=== PATIENT | female | born 1975 | race Caucasian/White ===

== ENCOUNTER 2020-09-17 00:40 | Observation (INO) | payer BC, SELFPAY ==
[2020-09-17] VITALS (9 sets, daily range): BP systolic 92–110; BP diastolic 48–77; PULSE 64–97; RESP 16–20; TEMP 36.1–36.7; O2SAT 98–100; BMI 22.0
--- NOTE | ~2020-09-17 | CT_ITS ---
EXAMINATION: CT abdomen pelvis w con DATE: 09/17/2020 02:33 INDICATION: Abdominal pain TECHNIQUE: Computed tomography (CT) of the abdomen and pelvis was performed with 100 cc Omnipaque 350 intravenous contrast. The dose-length product was 318.85 mGy-cm. Automated exposure control and iter ative reconstruction technique were employed. COMPARISON: No prior studies for comparison. FINDINGS: Lung bases are unremarkable. Heart size normal. No significant pleural or pericardial effus ion. No significant vascular abnormality. No lymphadenopathy. Hepatomegaly. The spleen, pancreas, adrenal glands and kidneys are unremarkable. Gallbladder is prese nt. Nonobstructive bowel gas pattern. There is a 11 mm tubular structure posterior to the cecum which could represent a dilated appendix or nonopacified small bowel. There are multiple dilated pelvic ve ins, consistent with pelvic congestion syndrome. No free air or free fluid. No acute osseous abnormal ity. There is a small fat-containing umbilical hernia. IMPRESSION: 1. Possible mildly dilated appendix versus unopacified small bowel. Consider appendicitis in the appr opriate clinical setting. 2: Multiple dilated periuterine veins, which can be associated with pelvic congestion syndrome. 3: Hepatomegaly. [facility] radiologist verbally discussed this case with clinician as per documentation in their report, which was faxed and scanned into PACS with this exam. Reviewed, dictated and finalized at location A. IMPRESSION: 1. Possible mildly dilated appendix versus unopacified small bowel. Consider ap pendicitis in the appropriate clinical setting. 2: Multiple dilated periuterine veins, which can be associated with pelvic leslee estion syndrome. 3: Hepatomegaly. [facility] radiologist verbally discussed this case with clinician as per document ation in their report, which was faxed and scanned into PACS with this exam.
--- NOTE | ~2020-09-17 | CT_ITS ---
EXAMINATION: CT pelvis wo con DATE: 09/17/2020 14:56 INDICATION: Abdominal pain. Delayed imaging obtained post oral contrast administration to more specif ically assess for suspected acute appendicitis on prior CT. TECHNIQUE: Computed tomography (CT) of the pelvis was performed without intravenous contrast but foll owing administration of water-soluble oral contrast. Automated exposure control and iterative reconst ruction technique were employed. The dose-length product was 306.17 mGy-cm. COMPARISON: 09/17/2020 at 2:27 AM FINDINGS: Oral contrast opacifies the mid to distal small bowel to the ileocecal valve and into the colon. Ther e is no oral contrast within the appendix which is seen arising from the tip of the cecum which exten ds posterior to the cecum towards the region of the entrance of the right inguinal canal. The appendi x measures up to 1.4 cm in maximal diameter with surrounding inflammatory stranding consistent with a cute appendicitis. Remainder of the bowels are unremarkable with no wall thickening or obstruction. B ladder is normal. Again seen are prominent parametrial veins and either side of the normal anteverted uterus which as previously noted is suggestive of pelvic vascular congestion syndrome. Small amount of likely reactive ascites in the cul-de-sac. No abscess or free intraperitoneal gas in the visualize d pelvis. Tiny fat-containing umbilical hernia. Bones are unremarkable. IMPRESSION: 1. Acute appendicitis. Dr. Aceves discussed these findings with Dr. Desai at 4:05 PM. Reviewed, dictated and finalized at location A. IMPRESSION: 1. Acute appendicitis. Dr. Aceves discussed these findings with Dr. Lloyd mejia t 4:05 PM.
[2020-09-17] MEDS: SODIUM CHLORIDE 0.9% IV 1,000 ML 999 ML IV CONT ×2 (01:42→05:39)
[2020-09-17] MEDS: MORPHINE SULFATE (*CRX) 4 MG/ML INJ IV PUSH ×2 (01:43→04:31)
[2020-09-17] MEDS: ONDANSETRON INJ 4 MG/2 ML VIAL IV PUSH (01:43)
[2020-09-17 01:54] LABS: Basophils Percent Auto 0.3 % (0.2-1.2); Eosinophils Absolute Auto 0.1 K/mm3 (0-0.3); Eosinophils Percent Auto 0.5 % (0-4.4); Hematocrit 42.9 % (37.0-47.0); Hemoglobin 14.5 g/dL (12.0-15.0); Immature Granulocyte Absolute 0.05 K/mm3 (0.00-0.031); Immature Granulocyte Percent A 0.4 % (0-0.5); Lymphocytes Absolute Auto 1.78 K/mm3 (0.9-3.2); Mean Corpuscular HGB Conc 33.8 g/dl (32-36); Mean Corpuscular Hemoglobin 31.4 pg (26-34); Mean Corpuscular Volume 92.9 fl (80-100); Mean Platelet Volume 10.4 fl (7.4-10.4); Monocytes Absolute Auto 0.9 K/mm3 (0.1-0.6); Monocytes Percent Auto 7.3 % (2.6-8.5); Neutrophils Absolute Auto 9.1 K/mm3 (1.3-6.7); Neutrophils Percent Auto 76.5 % (45.5-73.1); Platelet Count Result 228 k/mm3 (150-375); Red Blood Count 4.62 M/mm3 (4.2-5.4); Red Cell Distribution Width 12.1 % (11.5-14.5); White Blood Count 11.9 K/mm3 (4.5-10.0)
[2020-09-17 01:57] LABS: Add Urine Microscopic? YES; Appearance Urine Clear (Clear); Bilirubin Urine Negative (Negative); Blood Urine 1+ (Negative); Color Urine Yellow (Yellow); Glucose Urine UA Negative (Negative); Ketones Urine 1+ mg/dL (Negative); Leukocyte Esterase Ur Negative LEU/UL (Negative); Mucus Urine Rare /lpf; Nitrate Urine Negative (Negative); Protein Urine 1+ mg/dL (Negative); RBC Urine 0-2 /hpf (0-2); Specific Grav Ur 1.016 (1.001-1.035); Squamous Epithelial Cell Urine Rare /hpf (Few); Urobilinogen Urine Negative mg/dL (<2.0); WBC Urine 0-3 /hpf
[2020-09-17 02:05] LABS: Lactic Acid Reflex 0.9 mmol/L (0.7-2.1)
[2020-09-17 02:06] LABS: Alanine Aminotransferase 13 U/L (4-35); Albumin Level 4.3 g/dL (3.5-5.1); Alkaline Phosphatase 60 U/L (38-126); Anion Gap 7 mmol/L (8-16); Aspartate Amino Transferase 26 U/L (14-36); Bilirubin,Total 0.8 mg/dL (0.2-1.3); Blood Urea Nitrogen 17 mg/dL (7-17); Calcium 8.6 mg/dL (8.4-10.2); Carbon Dioxide 25 mmol/L (22-30); Chloride 104 mmol/L (98-107); Estimated CRCL calculation 66 ml/min; Estimated Glomerular Filt Rate > 60; Glucose 110 mg/dL (65-105); Lipase 55 U/L (23-300); Potassium 4.1 mmol/L (3.4-5.0); Sodium 136 mmol/L (137-145)
--- NOTE | 2020-09-17 02:56 | ED.GENADULT ---
HPI - General Adult General Chief complaint: Abdominal Pain Stated complaint: Abd pain Time Seen by Provider: 09/17/20 00:48 History of Present Illness HPI narrative: Patient is a 45-year-old female who presents to emergency department with chief complaint of abdominal pain. Patient reports that she started having pain diffusely throughout her abdomen reports that she did have a bit of diarrhea that is now subsequently switched to constipation. Patient reports she had some nausea with it but no vomiting. Related Data Home Medications Medication Instructions Recorded Confirmed No Home Medications 06/03/20 Allergies Allergy/AdvReac Type Severity Reaction Status Date / Time No Known Allergies Allergy Unverified 05/11/15 15:26 Review of Systems Review of Systems: Narrative: A 10 system review of systems was completed on the patient and is negative except for what is stated in the HPI. Nursing and ancillary documentation was reviewed. [facility] Past Medical History Medical History B12 deficiency Dizziness Heartburn Migraine with aura, not intractable, without status migrainosus Osteoarthritis Radiculopathy, cervical region Vitamin D insufficiency Family History Family History Mother Family history of heart disease in male family member before age 55 Hypertension Father Family history of gout Hypertension Social History Social History Smoking status: Never smoker Alcohol intake: never Exam Narrative: Exam Narrative: GENERAL: Well-appearing, well-nourished, and in no acute distress. HEAD: Normocephalic, atraumatic. EYES: PERRLA and EOMI. ENT: Nares clear, no rhinorrhea or epistaxis. Mucous membranes moist. NECK: Supple. CHEST: Clear to auscultation. No respiratory distress. HEART: Regular rate and rhythm. No murmur heard. Normal peripheral pulses. ABDOMEN: Soft, tender to palpation in the right lower quarant, nondistended, normal active bowel sounds. EXTREMITIES: Normal range of motion. No edema. SKIN: Warm, dry, no rash. NEURO: No focal deficits. Alert and oriented x3. PSYCH: Normal mood and affect. Const: General: healthy appearing Course Course Emergency Course: CT scan shows a 11 mm tubular structure posterior to the cecum concerning for possible acute appendicitis. The patient is moderately tender in the right lower quadrant the case was discussed with Dr. Desai who is on-call for general surgery. The patient will be admitted for observation and serial exams Vital Signs Vital signs: Vital Signs Temperature 36.3 C L 09/17/20 00:41 Pulse Rate 97 09/17/20 00:41 Respiratory Rate 18 09/17/20 00:41 Blood Pressure 101/60 09/17/20 00:41 Pulse Oximetry 98 09/17/20 00:41 Temperature 36.3 C L 09/17/20 00:41 Pulse Rate 68 09/17/20 02:47 Respiratory Rate 20 09/17/20 02:47 Blood Pressure 98/62 L 09/17/20 02:47 Pulse Oximetry 98 09/17/20 02:47 Medical Decision Making Vital Signs Vital Signs: Vital Signs Temperature 36.3 C L 09/17/20 00:41 Pulse Rate 97 09/17/20 00:41 Respiratory Rate 18 09/17/20 00:41 Blood Pressure 101/60 09/17/20 00:41 Pulse Oximetry 98 09/17/20 00:41 Temperature 36.3 C L 09/17/20 00:41 Pulse Rate 68 09/17/20 02:47 Respiratory Rate 20 09/17/20 02:47 Blood Pressure 98/62 L 09/17/20 02:47 Pulse Oximetry 98 09/17/20 02:47 Lab Data Result diagrams: 09/17/20 01:41 09/17/20 01:41 Labs: Lab Results 09/17/20 09/17/20 09/17/20 Range/Units 01:41 01:41 01:41 WBC 11.9 H (4.5-10.0) K/mm3 RBC 4.62 (4.2-5.4) M/mm3 Hgb 14.5 (12.0-15.0) g/dL Hct 42.9 (37.0-47.0) % MCV 92.9 (80-100) fl MCH 31.4 (26-34) pg MCHC 33.8 (32-36) g/dl RDW 12.1 (11.5-14.5)
--- NOTE | 2020-09-17 03:36 | PC.NURSE ---
EDMD presented to bedside to update pt on poc. remains at bedside. Call button and personal items within reach. Advised to press call button for assistance.
--- NOTE | 2020-09-17 04:23 | PC.NURSE ---
Pt resting on cart in its lowest position. Vitals stable and pt in no obvious distress at this time. remains at bedside. Advised to press call button for assistance.
[2020-09-17] MEDS: SODIUM CHLORIDE 0.9% IV 1,000 ML 125 ML IV CONT ×3 (04:30→21:06)
--- NOTE | 2020-09-17 04:49 | PC.NURSE ---
Pt ambulated in [place] to restroom with standby assistance from with a steady gait noted. Pt now back in bed and resting on cart in its lowest position with call button and personal items within reach. Advised to press call button for assistance.
--- NOTE | 2020-09-17 05:23 | PC.NURSE ---
Pt resting on cart in its lowest position with call button and personal items within reach. Pt advised to press call button for assistance. remains at bedside.
--- NOTE | 2020-09-17 05:34 | PC.NURSE ---
Pt noted with multiple episodes of hypotension. Pt also noted to become bradycardic; all onset post adinistration of 4 mg Morphine. EDMD notified and gave verbal order for 1liter bolus of 0.9 normal saline.
--- NOTE | 2020-09-17 05:41 | PC.NURSE ---
Report called to receiving nurse, Kaveh. Ok to send pt to floor.
--- NOTE | 2020-09-17 05:48 | PC.NURSE ---
3rd Med called and states room for pt has not been cleaned and asks to postpone pt transport until its completed.
--- NOTE | 2020-09-17 06:35 | ADMGEN ---
This patient, Esha Shetty, was admitted to Medical Room 345-01. Patient/family oriented to hospital policies and general routines including ID bracelet, bed and alarms, visiting hours, pain management, procedures, bathroom and other care routines, personal items, smoking policy, room service/diet, and visiting hours. Information on how to activate the Rapid Response Team has been discussed. Patient/Family are encouraged to report perceived risks to care and to ask questions if they do not understand what they are told or what they should do.
[2020-09-17 09:42] LABS: Basophils Percent Auto 0.3 % (0.2-1.2); Eosinophils Absolute Auto 0.1 K/mm3 (0-0.3); Eosinophils Percent Auto 0.8 % (0-4.4); Hematocrit 37.1 % (37.0-47.0); Hemoglobin 12.3 g/dL (12.0-15.0); Immature Granulocyte Absolute 0.02 K/mm3 (0.00-0.031); Immature Granulocyte Percent A 0.3 % (0-0.5); Lymphocytes Absolute Auto 1.72 K/mm3 (0.9-3.2); Lymphocytes Percent Auto 24.1 % (18.3-44.2); Mean Corpuscular HGB Conc 33.2 g/dl (32-36); Mean Corpuscular Hemoglobin 31.1 pg (26-34); Mean Corpuscular Volume 93.9 fl (80-100); Mean Platelet Volume 9.8 fl (7.4-10.4); Monocytes Absolute Auto 0.6 K/mm3 (0.1-0.6); Monocytes Percent Auto 7.8 % (2.6-8.5); Neutrophils Absolute Auto 4.8 K/mm3 (1.3-6.7); Neutrophils Percent Auto 66.7 % (45.5-73.1); Platelet Count Result 156 k/mm3 (150-375); Red Blood Count 3.95 M/mm3 (4.2-5.4); Red Cell Distribution Width 12.1 % (11.5-14.5); White Blood Count 7.2 K/mm3 (4.5-10.0)
--- NOTE | 2020-09-17 09:46 | PM.IMHP ---
H&P: HPI History of Present Illness Date/Time: 09/17/20 09:46 Chief Complaint: Abdominal pain Narrative: This is a 45-year-old female who presented to the emergency room last night with complaints of right lower quadrant abdominal pain. The patient reports having a longstanding history of intolerance to certain foods that cause significant indigestion. She reports apples being one of the foods that she is intolerant to and tries to avoid. She reportedly ate a bowl of applesauce 2 days ago and shortly after this had an onset of dyspepsia and generalized cramping, burning abdominal pain. The onset was at 5:00 p.m. 2 days ago. The generalized abdominal pain continued, until yesterday when she started having more localized right lower quadrant abdominal pain. Pain seemed aggravated by movement. She also felt her pain was aggravated by food. Denies fever chills. No history of having right lower quadrant abdominal pain in the past. Due to the continued pain, she presented to the ER for further evaluation. CT scan of abdomen and pelvis showed possibly mildly dilated appendix versus unopacified small bowel, without significant inflammatory stranding. Also noted is multiple dilated anitha uterine veins and hepatomegaly. Labs revealed a mildly elevated white blood cell count of 11,900. The ER physician and the patient has been admitted for surgical evaluation of the right lower quadrant abdominal pain with possible acute appendicitis. The patient is now seen on the medical floor. She reports her pain is unchanged since being admitted. She reports there is minimal abdominal pain when resting in the same position. This is aggravated when she moves or gets up from the bed. No other complaints at this time. No history of previous abdominal surgery. Review of Systems Constitutional: Constitutional: Reports as per HPI, Denies chills, Denies fatigue and Denies fever(s) Eyes: Eyes: Reports no additional eye complaints and Denies change in vision ENT: Reports Normal hearing present and Denies headache(s) Cardiovascular: Cardiovascular: Reports no additional cardiovascular complaints, Denies chest pain, Denies leg edema and Denies radiating jaw, neck or arm pain Respiratory: Respiratory: Reports no additional respiratory complaints, Denies cough, Denies dyspnea and Denies wheezing Gastrointestinal: Gastrointestinal: Reports as per HPI, Reports no additional gastrointestinal complaints, Reports abdominal pain, Denies melena, Reports bloating, Denies hematochezia, Reports constipation, Reports dyspepsia, Denies diarrhea, Denies loose stools, Reports nausea and Denies vomiting Genitourinary: Genitourinary: Denies hematuria and Denies dysuria Musculoskeletal: Musculoskeletal: Reports no additional musculoskeletal complaints, Denies joint swelling, Denies radiating pain into limb and Denies tingling Integumentary/Breasts: Skin/Breast: Denies lesions, Denies wounds and Denies jaundice Neurologic: Reports system reviewed and no additional complaints, except as documented, Denies dizziness, Denies syncope, Denies tingling and Denies tremor(s) Psychiatric: Psychiatric: Denies anxiety and Denies depression [facility] Past Medical History Medical History B12 deficiency Dizziness Heartburn Migraine with aura, not intractable, without status migrainosus Osteoarthritis Radiculopathy, cervical region Vitamin D insufficiency Surgical History Surgical History No history of previous surgery Family History Family History Mother Family history of heart disease in male family member before age 55 Hypertension Father Family history of gout Hypertension Social History Social History Smoking status: Never smoker Alcohol intake: never
--- NOTE | 2020-09-17 16:39 | PM.PNGS ---
Progress Note: A&P Assessment and Plan (1) Acute appendicitis, uncomplicated: Onset Date: ~09/15/20 Code(s): K35.80 - Unspecified acute appendicitis Status: Acute Assessment and Plan: The risks, benefits, and possible complications of treatment with continued antibiotic therapy versus surgical intervention have been discussed thoroughly with the patient. After thorough discussion she wishes to think about her decision overnight. I have tentatively scheduled surgery for her for 1:30 p.m. tomorrow if she wishes to proceed with surgical intervention. Will continue IV antibiotics overnight and see how she is feeling in the morning and she will make a decision early to mid morning after she talks with me. (2) Umbilical hernia: Onset Date: Unknown Code(s): K42.9 - Umbilical hernia without obstruction or gangrene Status: Acute Assessment and Plan: Patient did not know this bulge was a small umbilical hernia. She now knows this. If we do decide for surgical intervention I will make 1 of the incisions at the inferior edge of this and try to use it as 1 of the ports and then repair it with a stitch at the end of the procedure. If she decides to go with antibiotic treatment we can follow this expectantly and the office at a later date. Additional Plan Will allow the patient to have clear liquids from now on till midnight. NPO at midnight Left further discussions the morning regarding continued treatment of the suspected acute uncomplicated appendicitis. Continue IV antibiotics. Subjective Subjective Date/Time Seen: 09/17/20 16:39 I went back to visit patient after reviewing her follow-up noncontrast pelvic CT scan. I reviewed the CT scan with from her to will be reading it. This was with oral contrast. This proves that the structure thought to possibly be a swollen appendix is indeed that and is not a loop small bowel. Therefore with also some stranding seen near the appendix it is more diagnostic for probable early appendicitis. Patient now taking the next 12-14 hours decide about whether she wants to pursue continued antibiotic therapy or go ahead with surgical intervention. We discussed the various risks and benefits of this and possible need for surgery in 30% of the time if she chooses to continue with antibiotic therapy alone for the appendicitis. She states right now she is feeling okay she still has occasional short episodes of pain in her lower abdomen. Her pain is about 3/10 in the right lower quadrant. Objective Data Vital Signs Vital Signs: Vital Signs - 24 hr 09/17/20 00:41 09/17/20 01:54 09/17/20 02:47 Temperature 36.3 C L Pulse Rate 97 70 68 Respiratory Rate 18 18 20 Blood Pressure 101/60 105/73 98/62 L Pulse Oximetry 98 98 98 09/17/20 04:23 09/17/20 05:20 09/17/20 05:42 Temperature 36.7 C Pulse Rate 70 64 70 Respiratory Rate 20 19 20 Blood Pressure 110/77 92/51 L Pulse Oximetry 100 100 99 09/17/20 06:41 09/17/20 14:00 Temperature 36.1 C L 36.4 C Pulse Rate 68 65 Respiratory Rate 16 16 Blood Pressure 100/48 L 96/50 L Pulse Oximetry 100 100 Intake/Output Intake/Output: Intake & Output 09/14/20 09/15/20 09/16/20 09/17/20 23:59 23:59 23:59 23:59 Intake Total 3150 Balance 3150 Meds/Results Medications: Active Medications Generic Name Dose Route Start Last Admin Trade Name Freq PRN Reason Stop Dose Admin Sodium Chloride 1,000 mls @ 125 mls/hr 09/17/20 04:10 09/17/20 14:30 Normal Saline Iv IV CONT 125 mls/hr .Q8H MARGUERITE Administration Piperacillin/Tazobactam/Dextrose 3.375 gm in 50 mls @ 100 mls/hr 09/17/20 10:00 09/17/20 16:32 Zosyn 3.375 Gm/D5w 50ml Pm IVPB 100 mls/hr Q6H MARGUREITE Administration Acetaminophen 1,000 mg in 100 mls @ 400 mls/hr 09/17/20 09:48 09/17/20 13:20 Ofirmev 1,000 Mg Ivpb IVPB 09/18/20 09:49 Infused Q6H PRN Infusion Pain Rated 4-6 Morphine Sulfate 4 mg 09/17/20
[2020-09-18 04:53] VITALS: BP 96/50; PULSE 68; RESP 17; TEMP 36.4; O2SAT 99
[2020-09-18 06:33] LABS: Magnesium 2.1 mg/dL (1.6-2.3)
[2020-09-18 06:35] LABS: Basophils Percent Auto 0.7 % (0.2-1.2); Eosinophils Absolute Auto 0.1 K/mm3 (0-0.3); Eosinophils Percent Auto 2.1 % (0-4.4); Hematocrit 37.8 % (37.0-47.0); Hemoglobin 12.7 g/dL (12.0-15.0); Immature Granulocyte Absolute 0.01 K/mm3 (0.00-0.031); Immature Granulocyte Percent A 0.2 % (0-0.5); Lymphocytes Absolute Auto 1.22 K/mm3 (0.9-3.2); Lymphocytes Percent Auto 21.7 % (18.3-44.2); Mean Corpuscular HGB Conc 33.6 g/dl (32-36); Mean Corpuscular Hemoglobin 31.8 pg (26-34); Mean Corpuscular Volume 94.7 fl (80-100); Mean Platelet Volume 10.2 fl (7.4-10.4); Monocytes Absolute Auto 0.6 K/mm3 (0.1-0.6); Monocytes Percent Auto 9.8 % (2.6-8.5); Neutrophils Absolute Auto 3.7 K/mm3 (1.3-6.7); Neutrophils Percent Auto 65.5 % (45.5-73.1); Platelet Count Result 177 k/mm3 (150-375); Red Blood Count 3.99 M/mm3 (4.2-5.4); Red Cell Distribution Width 12.1 % (11.5-14.5); White Blood Count 5.6 K/mm3 (4.5-10.0)
[2020-09-18] MEDS: SODIUM CHLORIDE 0.9% IV 1,000 ML 125 ML IV CONT (07:53)
--- NOTE | 2020-09-18 10:36 | PM.PNGS ---
Progress Note: A&P Assessment and Plan (1) Acute appendicitis, uncomplicated: Onset Date: ~09/15/20 Code(s): K35.80 - Unspecified acute appendicitis Status: Acute Assessment and Plan: Patient has spoke with Dr. Desai this morning regarding moving forward with surgery today versus trying conservative treatment with antibiotics. She has remained afebrile and WBC this morning is normal. Since she has shown improvement in her pain and she is planning to travel this weekend, the patient is electing to try antibiotic therapy rather than surgery at this time. I have thoroughly discussed the potential outcomes of treating this with antibiotics, such as failing conservative treatment and risk of recurrence in the future. Patient is aware and all questions have been answered. We will transition her to oral antibiotics today to see if she is able to tolerate them prior to discharge. Will also start advancing her diet throughout the day. If she is doing well this afternoon and tolerating the oral antibiotics, then we will plan on discharging her later today with a course of Levaquin and Flagyl as an outpatient. (2) Umbilical hernia: Onset Date: Unknown Code(s): K42.9 - Umbilical hernia without obstruction or gangrene Status: Acute Assessment and Plan: Not causing any acute issues. Could follow as an outpatient since patient is choosing not to have surgery at this time. Additional Plan Discussed plan of care with Dr. Desai this morning. Subjective Subjective Date/Time Seen: 09/18/20 09:36 Patient reports: no new complaints, feels better, pain is less, tolerating liquids well and afebrile Interval history: Patient improved this morning. Reports pain has improved overnight. Tolerating liquids without complaints. No other complaints at this time. She wishes to wait on surgery and try conservative treatment with antibiotics. Review of Systems Review of Systems: All systems reviewed & are unremarkable except as noted in HPI and below Exam Const: General: comfortable, no acute distress, alert and awake Orientation/consciousness: patient oriented x3 Resp: Effort & Inspection: normal respiratory effort Auscultation: clear to auscultation bilaterally Cardio: Rate: regular rate Rhythm: regular rhythm GI: Inspection: non-distended GI Palp: Yes Soft to palpation, Yes Tenderness to palpation present (GI) (RLQ, improved), No Guarding due to palpation present (GI) and No Rebound tenderness present Auscultation: normal bowel sounds Skin: General skin exam: normal color Neuro: General: moves all extremities and no focal motor deficits Speech: normal speech Extrem: General: no clubbing, cyanosis or edema and no calf tenderness Psych: Mental Status: mental status grossly normal Insight: Good insight present (Psych) Judgement: Good judgement present (Psych) Objective Data Vital Signs Vital Signs: Vital Signs - 24 hr 09/17/20 14:00 09/17/20 21:01 09/18/20 04:53 Temperature 97.6 F 97 F L 97.6 F Pulse Rate 65 67 68 Respiratory Rate 16 16 17 Blood Pressure 96/50 L 105/54 L 96/50 L Pulse Oximetry 100 98 99 Intake/Output Intake/Output: Intake & Output 09/15/20 09/16/20 09/17/20 09/18/20 23:59 23:59 23:59 23:59 Intake Total 4490 1350 Output Total 225 Balance 4265 1350 Meds/Results Medications: Active Medications Generic Name Dose Route Start Last Admin Trade Name Freq PRN Reason Stop Dose Admin Acetaminophen 1,000 mg 09/18/20 10:32 Acetaminophen 500 Mg Tablet PO Q6H PRN Mild Pain (1-3) or Fever Levofloxacin 500 mg 09/18/20 15:00 Levofloxacin Tab 500 Mg Tablet PO DAILY MARGUERITE Metronidazole 500 mg 09/18/20 12:00 Metronidazole 250 Mg Tablet PO Q8HR MARGUERITE Morphine Sulfate 4 mg 09/17/20 04:10 09/17/20 04:31 Morphine Sulfate (*Crx) 4 Mg/Ml Inj IV PUSH 4 mg Q2H PRN Administration Pain Rated 7-10 Radiology Results: ITS
[2020-09-18] MEDS: metroNIDAZOLE 250 MG TABLET 500 MG PO (12:00)
[2020-09-18 14:30] VITALS: BP 92/60; PULSE 86; RESP 18; TEMP 36.8; O2SAT 95
--- NOTE | 2020-09-18 15:30 | PM.DS ---
DS: Admitting Diagnosis Admitting Diagnosis Admitting Diagnosis: RLQ Abdominal pain Umbilical hernia DS: Discharge Diagnosis Discharge Diagnosis (1) Acute appendicitis, uncomplicated: Onset Date: ~09/15/20 Code(s): K35.80 - Unspecified acute appendicitis Status: Acute (2) Umbilical hernia: Onset Date: Unknown Code(s): K42.9 - Umbilical hernia without obstruction or gangrene Status: Acute DS: Summary Hospital Course Reason for hospitalization: This is a 45-year-old female who presented to the emergency room with complaints of right lower quadrant abdominal pain. In the ER she was found to have mild leukocytosis with a WBC count 11,[address] scan of the abdomen and pelvis showed possibly mildly dilated appendix versus unopacified small bowel, without significant inflammatory stranding. Also noted is multiple dilated anitha uterine veins and hepatomegaly. Suggesting that in the right clinical setting this could suggest early acute appendicitis if the tubular structure was the appendix. Findings were equivocal and the our service was consulted for further evaluation. She was then admitted in this setting. Hospital Course: Initially, the patient had come in overnight and was not started on any IV antibiotics since this was not obvious acute appendicitis and seemed to be more equivocal. Labs were repeated the next morning and her WBC was normal. She was afebrile while hospitalized. She was evaluated by our service that morning and did appear to clinically correlate with appendicitis. She was appropriately tender in the RLQ with guarding and had some RLQ pain with palpation of the LLQ. Her pain was unchanged after giving her time with bowel rest and IV fluids. We had a thorough discussion with the patient regarding treatment options and we decided to start broad-spectrum IV antibiotics for a high suspicion of acute appendicitis and repeat a CT scan without IV contrast, but with oral contrast at about 12 hours after. This was to help reassess the tubular structure and decipher if this was the appendix and if there were any inflammatory changes. The repeat CT scan was more conclusive that this was acute appendicitis with the tubular structure noted on the initial CT being more obviously the appendix with dilatation and evidence of surrounding inflammatory stranding. No signs of perforation. These results were then again discussed with the patient and treatment options were discussed. She wished to give this more time with the antibiotics and think about proceeding with surgery versus trying to treat this conservatively. This morning, we again had a discussion and she had shown clinical improvement with the IV antibiotics. She remained afebrile and her WBC count was normal today. She plans on going out of town this weekend as well, which played a part in her decision. Because she was showing signs of improvement, she wanted to try conservative treatment at this time knowing the risks associated with this. She was advanced on a diet today and has been tolerating this well. Her abdominal pain continues to improve. She has been transitioned to oral antibiotics and is tolerating them well this afternoon. She is stable for discharge today with close follow-up. We will send her with a course of oral antibiotics. I discussed reasons to call or go to the nearest ER. We will have her follow-up in our office in [address] Desai. Status at Discharge Functional status at discharge: independent ambulation Overall status at discharge: patient is progressing back to baseline Time Spent with Patient Time attestation: Total time spent providing and/or coordinating discharge services: Time spent: Greater than 30 minutes DS: Data Data Completed and Pending Labs on day of discharge: Labs from last 24 hours 09/18/20 09/18/20 06:08 06:08 WBC 5.6 RBC 3.99 L Hgb 12.7 Hct 37.8 MCV 94.7 MCH 31.8 MCHC 33.6 RDW 12.
[2020-09-18 17:40] VITALS: PULSE 72; RESP 18; O2SAT 96
== END 2020-09-18 18:50 | disposition home or self-care (01) ==
LOC: ANHED 04:01 → ANH3MED 05:29
PROVIDERS: Nurse Practitioner Family; Admitting Provider Surgery; Emergency Provider Emergency Medicine; PCP Internal Medicine; Visit Provider Surgery
DX: K35.80 Unspecified acute appendicitis (principal); K42.9 Umbilical hernia without obstruction or gangrene
CPT/HCPCS: 36415; 72192; 74177; 80053; 81001; 83605; 83690; 83735; 85025; 96361; 96365; 96375; 96376; 99285; A9270; G0378; J0131; J2270; J2405; J2543; J7030; Q9967

== ENCOUNTER → 2021-07-18 00:03 | Outpatient (CLI) | payer BC, SELFPAY ==
[2021-07-18 20:23] LABS: SARS-CoV-2 RNA PCR Negative
== END ==
PROVIDERS: PCP Internal Medicine; Visit Provider Surgery
DX: Z01.812 Encounter for preprocedural laboratory examination (principal); Z20.822 Contact with and (suspected) exposure to COVID-19
CPT/HCPCS: C9803; U0003; U0005

== ENCOUNTER → 2021-08-21 02:26 | Outpatient (CLI) | payer BC, SELFPAY ==
[2021-08-21 11:49] LABS: SARS-CoV-2 RNA PCR Negative
== END ==
PROVIDERS: PCP Internal Medicine; Visit Provider Surgery
DX: Z01.812 Encounter for preprocedural laboratory examination (principal); Z20.822 Contact with and (suspected) exposure to COVID-19
CPT/HCPCS: C9803; U0003; U0005

== ENCOUNTER 2021-08-24 01:09 | Day surgery (SDC) | payer BC, SELFPAY ==
[2021-07-17 09:59] VITALS: BMI 22.1
--- NOTE | 2021-07-17 10:08 | PC.NURSE ---
Addendum entered by Malissa Barlow RN 08/17/21 12:12: PT TO ARRIVE AT 0700 ON 08/24/21 FOR SURGERY AT 0900. COVID TEST 08/21 AT 0900. Original Note: Report to the Outpatient Waiting Room, entrance under the green pavilion located off [facility], at time 1000 on date 07/21/21. OR Time: 1200. - You will be asked a series of questions to screen for COVID 19 for your protection. - A mask is required within the hospital. - No visitors are allowed at this time. Preoperative COVID Testing Requirements: COVID TEST 07/18 AT 0830 No COVID Test needed if: (proof is required; if not received patient will have Rapid Test prior to entry) - Patient has received COVID Vaccine at least 14 days prior to procedure date or - Patient has positive COVID test result within last 90 days of surgery date. COVID Test needed if above criteria is not met If not COVID vaccinated a COVID test must be conducted within 72 hours of surgery and patient is asked to isolate self from time of testing until procedure. You will go to the [facility] for your COVID testing. The [facility] site is located at the corner of [address] [facility]. You will only be called if COVID results are positive and your surgeon may reschedule your elective surgery date. Patients may have clear liquids (water, carbonated beverages, clear teas, apple juice) until 3 hours prior to surgery with a maximum of 20 ounces. - No food from midnight until time of surgery Take the following medications with a SIP of water the morning of surgery: TYLENOL (IF NEEDED) Medications to discontinue per physician: VITAMINS/SUPPLEMENTS Date to take last dose: 07/17/21 Please no make-up, nail nepali, hairspray, perfume, deodorant, or body powder the day of surgery. No jewelry (including any body piercings) or valuables the day of surgery, leave them at home. Please take a shower or bath the night before, or the morning of, surgery with an antibacterial soap. Wear comfortable, loose fitting clothing. HIBICLENS SHOWER - Jewelry must be removed prior to entering the operating room. Rings and piercings that are not removed may be cut off. - The hospital will not accept responsibility for valuables. - Please leave all valuables, including medications, at home the day of surgery. If you are going home after surgery, a licensed van cdl driver must drive you home. - NO public transportation without another adult. - We recommend that an adult stay with you for 24 hours following discharge. - We also recommend that you do not drive, make important decision, drink alcoholic beverages, or take any drugs that were not prescribed by your health care provider for at least 24 hours after your discharge time. Follow any additional instructions given to you from your surgeon. Telephone instructions given to ISAAC GILBERT and asked if any additional questions and then verbalized understanding. Patient advised to call surgeon office or pre surgery nurse liaison [phone] if any additional questions.
--- NOTE | 2021-07-20 12:55 | P.PNAN_ITS ---
Anes - Initial Pre Proc Eval Procedure: Operation Date: 07/21/21 14:00 Proposed Procedures p Open Umbilical Hernia Repair with Sutures - Brandon Desai MD Date/Time: 07/20/21 12:55 Surgeon: Brandon Desai MD Pre Op Diagnosis: umbilical hernia Patient Data Age: 46 Gender: F Height: 1.61 m Weight: 57.5 kg Allergies Allergy/AdvReac Type Severity Reaction Status Date / Time No Known Allergies Allergy Verified 07/17/21 09:56 Home Medications Medication Instructions Recorded Confirmed Type acetaminophen 650 mg PO QID PRN 07/17/21 07/17/21 History multivitamin 1 tablet PO DAILY 07/17/21 07/17/21 History Results Review: All pre-operative results and documents have been reviewed as part of the pre-operative evaluation. [facility] Past Medical History Medical History B12 deficiency Dizziness Heartburn Migraine with aura, not intractable, without status migrainosus Osteoarthritis Radiculopathy, cervical region Vitamin D insufficiency Surgical History Surgical History No history of previous surgery Family History Family History Mother Family history of heart disease in male family member before age 55 Hypertension Father Family history of gout Hypertension Social History Social History Smoking status: Never smoker Alcohol intake: never Substance use: never Substance use type: does not use Additional living arrangements comments: The patient lives at home with her three sons. 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 Informed Consent: The patient's anesthetic plan and its attendant risks and benefits were discussed with the patient/family/POA. Questions were solicited and answers provided to the satisfaction of the patient/family/POA.
--- NOTE | 2021-08-17 12:14 | PC.NURSE ---
Pt states no changes in medications or health history since initial interview. New instructions reviewed with pt. Pt denies further questions at this time.
--- NOTE | 2021-08-23 19:14 | PM.HPGS ---
History of Present Illness History of Present Illness Consent: Risks, benefits, and alternatives of an umbilical repair have been discussed and questions answered. Patient agrees to proceed with procedure. Chief complaint: umbilical hernia Narrative: Esha Shetty is a 46 year old female is been seen in the office twice in the past year after being treated medically with a short course of antibiotics for appendicitis and then for discomfort at the level of the umbilicus. On off she has noticed bulging and pain at the umbilicus. She was previously seen on 09/29/20, and 06/09/21 regarding the umbilical hernia repair and both Laparoscopic and open types of repair were discussed. She still reports a slight bulge at the umbilicus and minimal pain. Patient states she is ready to proceed with surgery. Review of Systems Constitutional: Constitutional: Reports no additional constitutional complaints, Reports fatigue and Denies malaise Eyes: Eyes: Denies change in vision and Denies loss of vision ENT: Reports Normal hearing present, Denies change in voice, Denies dizziness, Denies hoarseness and Denies sore throat Cardiovascular: Cardiovascular: Denies chest pain, Denies leg edema and Denies dyspnea Respiratory: Respiratory: Denies cough, Denies dyspnea and Denies wheezing Gastrointestinal: Gastrointestinal: Denies hematochezia, Denies change in bowel habits and Reports heartburn ( occasional) Comments: Genitourinary: Genitourinary: Denies urinary frequency and Denies urinary incontinence Musculoskeletal: Comments: history some amount of osteo-arthritis Neurologic: Reports Normal hearing present, Denies confusion, Denies dizziness, Denies loss of vision, Denies memory loss and Denies seizure-like activity Comments: history of migraines Psychiatric: Psychiatric: Denies confusion, Denies depression and Denies memory loss Endocrine: Endocrine: Denies cold intolerance and Reports fatigue Comments: history vitamin D deficiency Hematologic/Lymphatic: Hematologic/Lymphatic: Denies easy bleeding and Denies easy bruising Comments: history of a B12 deficiency Allergic/Immunologic: Allergic/Immunologic: Denies wheezing PMFSH Past Medical History Medical History B12 deficiency Dizziness Heartburn Migraine with aura, not intractable, without status migrainosus Osteoarthritis Radiculopathy, cervical region Vitamin D insufficiency Surgical History Surgical History No history of previous surgery Family History Family History Mother Family history of heart disease in male family member before age 55 Hypertension Father Family history of gout Hypertension Social History Social History Smoking status: Never smoker Alcohol intake: never Substance use: never Substance use type: does not use Living arrangements: with family Additional living arrangements comments: The patient lives at home with her three sons. 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 Gender identity (if verbalized by the patient): Female Spiritual care concerns: No Meds Home Medications and Allergies Home Medications Medication Instructions Recorded Confirmed Type acetaminophen 650 mg PO QID PRN 07/17/21 08/24/21 History multivitamin 1 tablet PO DAILY 07/17/21 08/24/21 History Allergies Allergy/AdvReac Type Severity Reaction Status Date / Time No Known Allergies Allergy Verified 08/24/21 08:22 Exam Const: General: cooperative, healthy appearing, no acute distress, well developed and alert; No confusion Nutritional Appearance: well nourished Orientation/consciousness: patient oriented x3 and No confusion Limitations: no limitations HENMT: Head: normal to insp
[2021-08-24] VITALS (9 sets, daily range): BP systolic 93–106; BP diastolic 44–59; PULSE 60–86; RESP 14–18; TEMP 36.3–37.1; O2SAT 97–100
[2021-08-24] MEDS: KETOROLAC 15 MG/ML VIAL (*BKC) IV PUSH (07:52)
[2021-08-24] MEDS: ACETAMINOPHEN 500 MG TABLET 1000 MG PO (07:54)
--- NOTE | 2021-08-24 08:00 | P.PNAN_ITS ---
Anes - Initial Pre Proc Eval Procedure: Operation Date: 08/24/21 09:00 Proposed Procedures p Open Umbilical Hernia Repair with Sutures - Brandon Desai MD Date/Time: 08/24/21 08:00 Surgeon: Brandon Desai MD Pre Op Diagnosis: umbilical hernia Patient Data Age: 46 Gender: F Height: 1.61 m Weight: 57.5 kg Allergies Allergy/AdvReac Type Severity Reaction Status Date / Time No Known Allergies Allergy Verified 07/17/21 09:56 Home Medications Medication Instructions Recorded Confirmed Type acetaminophen 650 mg PO QID PRN 07/17/21 08/07/21 History multivitamin 1 tablet PO DAILY 07/17/21 08/07/21 History Patient hx anesthesia problems: none and other (motion sickness) Family hx anesthesia problems: none Results Review: All pre-operative results and documents have been reviewed as part of the pre-operative evaluation. [facility] Past Medical History Medical History B12 deficiency Dizziness Heartburn Migraine with aura, not intractable, without status migrainosus Osteoarthritis Radiculopathy, cervical region Vitamin D insufficiency Surgical History Surgical History No history of previous surgery Family History Family History Mother Family history of heart disease in male family member before age 55 Hypertension Father Family history of gout Hypertension Social History Social History Smoking status: Never smoker Alcohol intake: never Substance use: never Substance use type: does not use Living arrangements: with family Additional living arrangements comments: The patient lives at home with her three sons. 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 Informed Consent: The patient's anesthetic plan and its attendant risks and benefits were discussed with the patient/family/POA. Questions were solicited and answers provided to the satisfaction of the patient/family/POA.
[2021-08-24] MEDS: ceFAZolin 2 GM/D5W 50 ML 2 GM/50 ML BAG IVPB (08:30)
--- NOTE | 2021-08-24 08:35 | WPDHPUPDATE1 ---
History and Physical Update Update Date/Time: 08/24/21 08:35 History and Physical has been reviewed, including an updated exam of the patient. There are NO changes in the patient's condition. Risks, benefits, and alternatives have been discussed and questions answered. Patient agrees to proceed with procedure.
[2021-08-24] MEDS: BUPIVACAINE/EPINEPHRINE 0.25% 10 ML VIAL 20 ML INFILTRATE (09:02)
[2021-08-24] MEDS: LACTATED RINGERS 1,000 ML 30 ML IV CONT ×2 (09:48)
--- NOTE | 2021-08-24 10:21 | W.PM.PROC2 ---
Procedure Note - Detailed Date of Procedure 08/24/21 Pre-op Diagnosis umbilical hernia Post-op Diagnosis same Procedure Performed Open umbilical hernia repair with sutures Surgeon Brandon Desai MD Heavy Equipment Operator LUCIANO Ayers, OR [facility] assist Anesthesia general (Via LMA) Indications Patient has had intermittent bulging and pain at the umbilicus for some time. Findings Small fascial defect with some omentum stuck to the edges. (approximately 1 cm diameter) Description of Procedure Patient was brought to the OR room on a cart. She then slid over onto the OR table. After induction of adequate general anesthesia including placement of an LMA by [place] anesthesia we prepped the entire abdomen concentrating on the center with chlorhexidine. Time-out was then performed with the surgery team and appropriate draping was completed. Local anesthetic was then instilled in a curvilinear line right at the lower edge of the umbilicus as previously outlined. We then carefully lifted the skin flap superiorly off the hernia sac and dissected straight down to the inferior edge of the fascial defect. It was a round fascial defect. I used a 15 blade knife and two Allis's to elevate the umbilical skin and at the apex of the hernia sac we entered the sac and a little bit of the thin hernia sac was left on the underside of the skin overlying the middle of hernia. I then carefully incised the hernia sac and into the subcutaneous tissues above the level of the defect in the fascia such that we could dissect under the subcutaneous tissues for 1 cm cephalad. This nicely exposed the circular fascial defect. The mid section of the hernia sac both superiorly and inferiorly was then excised with Bovie cautery exposing the fascial edges. I then used a small Hydro scissors to dissect adherent omentum off the edges of the fascial defect and the omentum was able to be pushed back into the abdomen. After freshening the edges of the fascia I then did a zllal-dano-yzie closure with 3 sutures of 0 Ethibond starting each suture with a deep bite inferiorly then the superficial bite by coming through top to bottom superiorly then going again deep under superiorly then bringing the suture in a [id number] fashion superficially inferiorly deep to superficial such that when we tied all 3 it pulled the upper fascia slightly underneath the edge of the lower fascia. After placing all 3 sutures we pulled them up tight making sure the omentum was nicely freed from the edges and stayed in the abdomen. I then tied each of these serially and then I placed one more simple suture to the left lateral side to approximate more strongly the edge of the fascia in that area. The repair was inspected and palpated and seemed to be strong. Local anesthetic was then infiltrated into the surrounding tissues using the 0.25 Marcaine with epinephrine to give long-lasting analgesic effect for postoperative pain. Following this further closure was completed by using 3-0 Vicryl sutures in the subcutaneous tissues and then in a running subcuticular closure of 4-0 Monocryl on the skin. I also used one 3-0 Vicryl on the underside of the center of the superior skin flap that had been dissected over the hernia and sutured this to the underlying fascia to try to give the patient an inny umbilicus. A sterile cotton ball was placed in the umbilicus after letting the surgical glue dry and then this was covered with a medium Tegaderm in an attempt to keep the skin of the umbilicus base down against the underlying subcutaneous tissues. Implants None Estimated Blood Loss 0.5 Drains No Packing No Pathology yes (Portions of umbilical hernia sac) Complications No immediate complications Condition stable Disposition PACU
== END 2021-08-24 12:15 | disposition home or self-care (01) ==
PROVIDERS: PCP Internal Medicine; Visit Provider Surgery
PROC: (CPT 49585; principal; 2021-08-24 09:00)
DX: K42.9 Umbilical hernia without obstruction or gangrene (principal); D51.9 Vitamin B12 deficiency anemia, unspecified; E55.9 Vitamin D deficiency, unspecified; M19.90 Unspecified osteoarthritis, unspecified site; R12 Heartburn; M54.12 Radiculopathy, cervical region; G43.909 Migraine, unspecified, not intractable, without status migrainosus
CPT/HCPCS: 49585; 88302; A9270; J0690; J1100; J1885; J2250; J2405; J2704; J3010; J7120

== ENCOUNTER 2023-02-16 10:03 | Outpatient (CLI) | payer OTHER, SELFPAY ==
[2023-02-16 18:36] LABS: Basophils Percent Auto 0.6 % (0.2-1.2); Eosinophils Absolute Auto 0.1 K/mm3 (0-0.3); Eosinophils Percent Auto 1.2 % (0-4.4); Hematocrit 43.3 % (37.0-47.0); Immature Granulocyte Absolute 0.01 K/mm3 (0.00-0.031); Immature Granulocyte Percent A 0.2 % (0-0.5); Lymphocytes Absolute Auto 1.17 K/mm3 (0.9-3.2); Mean Corpuscular HGB Conc 32.3 g/dl (32-36); Mean Corpuscular Hemoglobin 31.5 pg (26-34); Mean Corpuscular Volume 97.3 fl (80-100); Mean Platelet Volume 11.1 fl (7.4-10.4); Monocytes Absolute Auto 0.6 K/mm3 (0.1-0.6); Monocytes Percent Auto 8.8 % (2.6-8.5); Neutrophils Absolute Auto 4.6 K/mm3 (1.3-6.7); Neutrophils Percent Auto 71.2 % (45.5-73.1); Platelet Count Result 195 k/mm3 (150-375); Red Blood Count 4.45 M/mm3 (4.2-5.4); Red Cell Distribution Width 12.4 % (11.5-14.5); White Blood Count 6.5 K/mm3 (4.5-10.0)
[2023-02-16 19:17] LABS: Alanine Aminotransferase 15 U/L (6-35); Alkaline Phosphatase 51 U/L (38-126); Anion Gap 1 mmol/L (8-16); Aspartate Amino Transferase 30 U/L (14-36); Bilirubin,Total 0.7 mg/dL (0.2-1.3); Blood Urea Nitrogen 14 mg/dL (7-17); Calcium 8.9 mg/dL (8.4-10.2); Carbon Dioxide 31 mmol/L (22-30); Chloride 102 mmol/L (98-107); Estimated Glomerular Filt Rate > 60; Glucose 84 mg/dL (65-110); Potassium 4.3 mmol/L (3.4-5.0); Sodium 134 mmol/L (137-145)
== END 2023-02-16 10:04 | disposition home or self-care (01) ==
PROVIDERS: PCP Internal Medicine; Visit Provider Nurse Practitioner
DX: R53.1 Weakness (principal)
CPT/HCPCS: 36415; 80053; 84439; 84443; 84481; 85025

== ENCOUNTER 2024-01-12 09:55 | Emergency (ER) | payer OTHER, SELFPAY ==
--- NOTE | ~2024-01-12 | CT_ITS ---
EXAMINATION: CT abdomen pelvis w con DATE: 01/12/2024 11:27 INDICATION: Abdominal cramping and blood in stool TECHNIQUE: Computed tomography (CT) of the abdomen and pelvis was performed with 100 mL Omnipaque-350 intravenous contrast. Automated exposure control and iterative reconstruction technique were employe d. The dose-length product was 304.62 mGy-cm. COMPARISON: None FINDINGS: Lung bases are clear. Heart size is normal. No pericardial or pleural effusion. There are multiple sm all low-attenuation hepatic cysts measuring up to 5 mm. Spleen, pancreas, bilateral adrenal glands an d kidneys are normal. There is diffuse wall thickening of the in the descending and sigmoid colon con sistent with colitis. No bowel obstruction. Likely interval appendectomy. Bladder, uterus and bilater al adnexa are unremarkable. No free intraperitoneal gas or fluid. No pathologically enlarged abdomina l or pelvic lymphadenopathy. The aorta and the major branches arising from the aorta appear normal. T here are prominent bilateral gonadal and periuterine veins particularly on the left which can be seen with pelvic vascular congestion syndrome. Bones are unremarkable. IMPRESSION: 1. Descending and sigmoid colitis most likely either infectious or inflammatory in etiology. 2. Persistent dilated periuterine and gonadal veins which can be seen with pelvic vasculature congest ion syndrome. Reviewed, dictated and finalized at [facility]. IMPRESSION: 1. Descending and sigmoid colitis most likely either infectious or inflammatory in etiology. 2. Persistent dilated periuterine and gonadal veins which can be seen with pelv ic vasculature congestion syndrome.
[2024-01-12 10:03] VITALS: BP 113/68; PULSE 99; RESP 14; TEMP 36.6; O2SAT 99
[2024-01-12 10:33] LABS: Appearance Urine Clear (Clear); Bilirubin Urine Negative (Negative); Blood Urine Negative (Negative); Color Urine Yellow (Yellow); Glucose Urine UA Negative (Negative); Ketones Urine 1+ mg/dL (Negative); Leukocyte Esterase Ur Negative LEU/UL (Negative); Nitrate Urine Negative (Negative); Protein Urine Negative (Negative); Specific Grav Ur 1.012 (1.001-1.035)
[2024-01-12 10:34] LABS: Add Urine Microscopic? NO
[2024-01-12 10:35] LABS: Basophils Absolute Auto 0.1 K/mm3 (0.0-0.1); Basophils Percent Auto 0.6 % (0.2-1.2); Eosinophils Absolute Auto 0.1 K/mm3 (0-0.3); Eosinophils Percent Auto 0.8 % (0-4.4); Hematocrit 41.7 % (37.0-47.0); Hemoglobin 14.1 g/dL (12.0-15.0); Immature Granulocyte Absolute 0.02 K/mm3 (0.00-0.031); Immature Granulocyte Percent A 0.3 % (0-0.5); Lymphocytes Percent Auto 17.8 % (18.3-44.2); Mean Corpuscular HGB Conc 33.8 g/dl (32-36); Mean Corpuscular Volume 94.6 fl (80-100); Mean Platelet Volume 10.5 fl (7.4-10.4); Monocytes Absolute Auto 0.8 K/mm3 (0.1-0.6); Monocytes Percent Auto 10.1 % (2.6-8.5); Neutrophils Absolute Auto 5.5 K/mm3 (1.3-6.7); Neutrophils Percent Auto 70.4 % (45.5-73.1); Platelet Count Result 165 k/mm3 (150-375); Red Blood Count 4.41 M/mm3 (4.2-5.4); Red Cell Distribution Width 12.3 % (11.5-14.5); White Blood Count 7.9 K/mm3 (4.5-10.0)
[2024-01-12 10:42] LABS: Alanine Aminotransferase 12 U/L (6-35); Albumin Level 4.3 g/dL (3.5-5.1); Alkaline Phosphatase 60 U/L (38-126); Anion Gap 11 mmol/L (4-12); Aspartate Amino Transferase 20 U/L (14-36); Blood Urea Nitrogen 19 mg/dL (7-17); Calcium 8.6 mg/dL (8.4-10.2); Carbon Dioxide 25 mmol/L (22-30); Chloride 99 mmol/L (98-107); Estimated CRCL calculation 33 ml/min; Estimated Glomerular Filt Rate 34; Glucose 94 mg/dL (65-110); Lipase 47 U/L (23-300); Potassium 4.2 mmol/L (3.4-5.0); Sodium 135 mmol/L (137-145)
--- NOTE | 2024-01-12 11:00 | ED.ABDPAIN ---
HPI - Abdominal Pain General Chief Complaint: Abdominal Pain Stated Complaint: abdominal pain, bloody stool Time Seen by Provider: 01/12/24 10:44 History of Present Illness HPI narrative: 49-year-old female presents to the emergency room for evaluation of lower abdominal pain and bright red blood in her stool. Patient states 4 days ago was experiencing Related Data Home Medications Medication Instructions Recorded Confirmed acetaminophen 650 mg tablet 650 mg PO QID PRN Migraine Headache 07/17/21 02/16/23 multivitamin 1 tablet PO DAILY 07/17/21 02/16/23 Allergies Allergy/AdvReac Type Severity Reaction Status Date / Time No Known Allergies Allergy Verified 01/12/24 09:55 [facility] Past Medical History Medical History (Updated 01/12/24 @ 12:05 by Rishi Watts APRN) B12 deficiency Dizziness Heartburn Migraine with aura, not intractable, without status migrainosus Osteoarthritis Radiculopathy, cervical region Vitamin D insufficiency Surgical History Surgical History H/O umbilical hernia repair 08/24/2021 No history of previous surgery Family History Family History Mother Family history of heart disease in male family member before age 55 Hypertension Father Family history of gout Hypertension Social History Social History (Updated 02/16/23 @ 09:17 by Jennifer Reinoso MA) Smoking status: Never smoker Alcohol intake: never Substance use: never Substance use type: does not use Lack of Transportation: No Lack of Food: Never True Current Housing: I Have Housing Concerned About Future Housing: No Difficulty Paying Gas/Electric Bills: No Difficulty Paying for Meds: No Currently Unemployed: No Education: High School Diploma/GED Difficulty w/ Childcare or Family Care: No Living arrangements: with family Additional living arrangements comments: The patient lives at home with her three sons. 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 Gender identity (if verbalized by the patient): Female Spiritual care concerns: No Course Vital Signs Vital signs: Vital Signs Temperature 36.6 C 01/12/24 10:03 Pulse Rate 99 01/12/24 10:03 Respiratory Rate 14 01/12/24 10:03 Blood Pressure 113/68 01/12/24 10:03 Pulse Oximetry 99 01/12/24 10:03 Oxygen Delivery Room Air 01/12/24 10:03 Temperature 36.6 C 01/12/24 10:03 Pulse Rate 56 L 01/12/24 11:53 Respiratory Rate 18 01/12/24 11:53 Blood Pressure 108/69 01/12/24 11:53 Pulse Oximetry 100 01/12/24 11:53 Oxygen Delivery Room Air 01/12/24 10:03 MDM - Abdominal Pain Lab Data 01/12/24 10:23 01/12/24 10:23 Labs: Lab Results 01/12/24 Range/Units 10:23 WBC 7.9 (4.5-10.0) K/mm3 RBC 4.41 (4.2-5.4) M/mm3 Hgb 14.1 (12.0-15.0) g/dL Hct 41.7 (37.0-47.0) % MCV 94.6 (80-100) fl MCH 32.0 (26-34) pg MCHC 33.8 (32-36) g/dl RDW 12.3 (11.5-14.5) % Plt Count 165 (150-375) k/mm3 MPV 10.5 H (7.4-10.4) fl Immature Gran % (Auto) 0.3 (0-0.5) % Neut % (Auto) 70.4 (45.5-73.1) % Lymph % (Auto) 17.8 L (18.3-44.2) % [place] % (Auto) 10.1 H (2.6-8.5) % Eos % (Auto) 0.8 (0-4.4) % Baso % (Auto) 0.6 (0.2-1.2) % Lymph # (Auto) 1.40 (0.9-3.2) K/mm3 [place] # (Auto) 0.8 H (0.1-0.6) K/mm3 Eos # (Auto) 0.1 (0-0.3) K/mm3 Baso # (Auto) 0.1 (0.0-0.1) K/mm3 Abs Immat Gran (auto) 0.02 (0.00-0.031) K/mm3 Absolute Neuts (auto) 5.5 (1.3-6.7) K/mm3 Absolute Nucleated RBC 0.000 (0.0-0.012) K/mm3 Nucleated RBC % 0.0 (0.0-0.2) % Sodium 135 L (137-145) mmol/L Potassium 4.2 (3.4-5.0) mmol/L Chloride 99 (98-107) mmol/L Carbon Dioxide 25 (22-30) mmol/L Anion Gap 11 (4-12) mmol/L BUN 19 H (7-17) mg/dL Creatinine 1.60 H (0.7-1
[2024-01-12] MEDS: SODIUM CHLORIDE 0.9% IV 1,000 ML 999 ML IV CONT (11:05)
[2024-01-12 11:53] VITALS: BP 108/69; PULSE 56; RESP 18; O2SAT 100
[2024-01-12 12:24] VITALS: BP 108/69; PULSE 63; RESP 17; TEMP 36.8; O2SAT 100
== END 2024-01-12 12:26 | disposition home or self-care (01) ==
PROVIDERS: Student in an Organized Health Care Education/Training Program; Emergency Provider Nurse Practitioner Family; PCP Internal Medicine
DX: K52.9 Noninfective gastroenteritis and colitis, unspecified (principal); E53.8 Deficiency of other specified B group vitamins; E55.9 Vitamin D deficiency, unspecified; M19.90 Unspecified osteoarthritis, unspecified site; R93.89 Abnormal findings on diagnostic imaging of other specified body structures
CPT/HCPCS: 36415; 74177; 80053; 81003; 81025; 83690; 85025; 96360; 99284; J7030; Q9967

== ENCOUNTER 2024-07-20 01:42 | Emergency (ER) | payer OTHER, SELFPAY ==
--- NOTE | ~2024-07-20 | CT_ITS ---
CT of the Abdomen and Pelvis: Indication: Abdominal pain Technique: 2.5 mm axial scans were obtained through the abdomen and pelvis following intravenous adm inistration of 100 cc of Omnipaque 350. Dose reduction technique was used on this scan by utilizing a utomated exposure control and iterative reconstruction technique. The dose-length product (DLP) was 2 74.08 mGy-cm. COMPARISON: 01/12/2024 Findings: Scans through the lung bases are unremarkable. The liver, spleen, pancreas, gallbladder, adrenals and kidneys are within normal limits. No evidence of aortic aneurysm. No lymphadenopathy. No bowel obstruction or bowel wall thickening. There is no evidence to suggest acute appendicitis. Images through the pelvis were performed. Urinary bladder unremarkable. Prominent endometrium could r elate to stage in menstrual cycle. No pelvic mass evident. No ascites. Impression: No acute abnormalities seen. Somewhat prominent endometrium is similar to prior exam, possibly related to stage in menstrual cycle . Reviewed, dictated and finalized at [facility]. MATRON Impression: No acute abnormalities seen. Somewhat prominent endometrium is similar to prior exam, possibly related to st age in menstrual cycle.
[2024-07-20 01:45] VITALS: BP 111/49; PULSE 64; RESP 20; TEMP 36.3; O2SAT 100
[2024-07-20 03:42] VITALS: BP 107/76; PULSE 63; RESP 18; O2SAT 98
[2024-07-20 03:43] LABS: Basophils Percent Auto 0.9 % (0.2-1.2); Eosinophils Absolute Auto 0.1 K/mm3 (0-0.3); Eosinophils Percent Auto 1.6 % (0-4.4); Hematocrit 40.6 % (37.0-47.0); Hemoglobin 13.6 g/dL (12.0-15.0); Immature Granulocyte Absolute 0.01 K/mm3 (0.00-0.031); Immature Granulocyte Percent A 0.2 % (0-0.5); Lymphocytes Absolute Auto 1.56 K/mm3 (0.9-3.2); Lymphocytes Percent Auto 34.7 % (18.3-44.2); Mean Corpuscular HGB Conc 33.5 g/dl (32-36); Mean Corpuscular Hemoglobin 31.5 pg (26-34); Mean Platelet Volume 10.7 fl (7.4-10.4); Monocytes Absolute Auto 0.5 K/mm3 (0.1-0.6); Monocytes Percent Auto 11.4 % (2.6-8.5); Neutrophils Absolute Auto 2.3 K/mm3 (1.3-6.7); Neutrophils Percent Auto 51.2 % (45.5-73.1); Platelet Count Result 168 k/mm3 (150-375); Red Blood Count 4.32 M/mm3 (4.2-5.4); Red Cell Distribution Width 11.6 % (11.5-14.5); White Blood Count 4.5 K/mm3 (4.5-10.0)
[2024-07-20 03:52] LABS: Alanine Aminotransferase 13 U/L (6-35); Albumin Level 4.1 g/dL (3.5-5.1); Alkaline Phosphatase 58 U/L (38-126); Anion Gap 7 mmol/L (4-12); Aspartate Amino Transferase 23 U/L (14-36); Bilirubin,Total 1.1 mg/dL (0.2-1.3); Blood Urea Nitrogen 20 mg/dL (7-17); Calcium 8.8 mg/dL (8.4-10.2); Carbon Dioxide 24 mmol/L (22-30); Chloride 105 mmol/L (98-107); Estimated CRCL calculation 72 ml/min; Estimated Glomerular Filt Rate > 60; Glucose 87 mg/dL (65-110); Magnesium 2.2 mg/dL (1.6-2.3); Potassium 3.8 mmol/L (3.4-5.0); Sodium 136 mmol/L (137-145)
[2024-07-20 03:54] LABS: Lactic Acid Reflex 0.5 mmol/L (0.7-2.0)
[2024-07-20 04:19] LABS: Influenza A QL RT-PCR Negative (Negative); Influenza B QL RT-PCR Negative (Negative); RSV RNA, RT-PCR Negative (Negative); SARS-CoV-2 RNA PCR Negative (Negative)
--- NOTE | 2024-07-20 05:51 | ED_ITS ---
HPI - Abdominal Pain General Chief Complaint: Abdominal Pain Stated Complaint: abd pain Time Seen by Provider: 07/20/24 05:22 History of Present Illness HPI narrative: Patient is 49-year-old female who presents emergency department this evening complaining of lower abdominal pain since Tuesday. Admits to intermittent nausea and diarrhea and secondary to this patient has maintained a liquid diet to help with her symptoms. Currently denying any nausea or abdominal pain. Also denies any active diarrhea. Denies any chest pain or shortness of breath. No additional symptoms or concerns at this time. Related Data Home Medications ?Medication ?Instructions ?Recorded ?Confirmed ?Last Taken ?Type acetaminophen 650 mg tablet 650 mg PO QID PRN Migraine Headache 07/17/21 02/23/24 Unknown History multivitamin 1 tablet PO DAILY 07/17/21 02/23/24 Unknown History Allergies Allergy/AdvReac Type Severity Reaction Status Date / Time No Known Allergies Allergy Verified 07/12/24 13:46 Review of Systems 2 Review of Systems: All systems are reviewed and are negative unless stated otherwise in the HPI. [facility] Past Medical History Medical History Gluten intolerance Abnormal CT scan Dizziness Osteoarthritis Heartburn Vitamin D insufficiency B12 deficiency Migraine with aura, not intractable, without status migrainosus Radiculopathy, cervical region Surgical History Surgical History H/O umbilical hernia repair 08/24/2021 No history of previous surgery Family History Family History Mother Family history of heart disease in male family member before age 55 Hypertension Father Family history of gout Hypertension Social History Social History Smoking status: Never smoker Alcohol intake: never Substance use: never Substance use type: does not use Do You Feel Safe in your Home?: Yes Lack of Transportation: No Lack of Food: Never True Current Housing: I Have Housing Concerned About Future Housing: No Difficulty Paying Gas/Electric Bills: No Difficulty Paying for Meds: No Currently Unemployed: Decline to Answer Education: High School Diploma/GED Difficulty w/ Childcare or Family Care: No Living arrangements: with family Additional living arrangements comments: The patient lives at home with her three sons. 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 HEENT: PERRL, no rhinorrhea, no post nasal drip, oropharynx clear. Neck: Trachea midline, no JVD, no lymphadenopathy. Cardiovascular: Regular rate and rhythm, no murmurs, rubs or gallops, no peripheral edema. Respiratory: Clear to auscultation bilaterally, no tachypnea, no wheezing, no rhonchi, no rubs, no respiratory distress. Abdomen: Soft, nontender, nondistended, no rebound, no guarding, no peritoneal signs. Musculoskeletal: No joint swelling or deformity, normal muscle tone. Skin: No rashes or petechia, no signs of infection. Psychiatric: Alert and oriented, normal behavior and judgment for situation. Neurological: Alert and oriented to person, place, and time. Follows all commands. No focal deficits, speech is clear and fluent. Course Vital Signs Vital signs: Vital Signs Temperature 97.3 F L 07/20/24 01:45 Pulse Rate 64 07/20/24 01:45 Respiratory Rate 20 07/20/24 01:45 Blood Pressure 111/49 L 07/20/24 01:45 Pulse Oximetry 100 07/20/24 01:45 Oxygen Delivery Room Air 07/20/24 01:45 Temperature 97.3 F L 07/20/24 01:45 Pulse Rate 62 07/20/24 05:54 Respiratory Rate 17 07/20/24 05:54 Blood Pressure 104/62 07/20/24 05:54 Pulse Oximetry 98 07/20/24 05:54 Oxygen Delivery Room Air 07/20/24 01:45 MDM - Abdominal Pain MDM Narrative Medical decision making narrative: The patient was evaluated by myself in the emergency department. History is obtained from patient who is an independent historian and physical exam was performed. External medical records were reviewed at this time. IV was established and pertinent tests were ordered. Patient refuses any medications as she does not have any pain or nausea at this time. Urinalysis pending. Laboratory results obtained revealing no acute process. Viral swabs negative for COVID/influenza/RSV. Urinalysis pending. Imaging studies obtained included CT abdomen and pelvis with IV contrast which was independently interpreted by me revealing [finding], which is pending final radiology interpretation. Differential diagnosis considerations include gastroenteritis, dehydration, electrolyte derangements, diverticulitis, enteritis. Comorbidities impacting this visit include none. I have evaluated and discussed social determinants of health with the patient that could potentially impact subsequent diagnosis and treatment plans. On repeat assessment of the patient, reevaluation revealed that the patient is doing well and is in no acute distress. Patient symptoms have remained stable since she arrived to our emergency department. Repeat vital signs were all reviewed and noted to be stable. Differential diagnosis and treatment plan were discussed with the patient at bedside. Patient agrees with discussion and after shared medical decision making agrees with discharge. All questions were answered to the patient's satisfaction. Patient will follow up with GI in 3-5 days. Patient was provided with strict return precautions and instructed to return to the emergency department if any new or worsening symptoms develop. The patient was discharged in stable condition. Lab Data 07/20/24 03:34 07/20/24 03:34 Labs: Lab Results 07/20/24 07/20/24 Range/Units 03:34 05:55 WBC 4.5 (4.5-10.0) K/mm3 RBC 4.32 (4.2-5.4) M/mm3 Hgb 13.6 (12.0-15.0) g/dL Hct 40.6 (37.0-47.0) % MCV 94.0 (80-100) fl MCH 31.5 (26-34) pg MCHC 33.5 (32-36) g/dl RDW 11.6 (11.5-14.5) % Plt Count 168 (150-375) k/mm3 MPV 10.7 H (7.4-10.4) fl Immature Gran % (Auto) 0.2 (0-0.5) % Neut % (Auto) 51.2 (45.5-73.1) % Lymph % (Auto) 34.7 (18.3-44.2) % [facility] % (Auto) 11.4 H (2.6-8.5) % Eos % (Auto) 1.6 (0-4.4) % Baso % (Auto) 0.9 (0.2-1.2) % Lymph # (Auto) 1.56 (0.9-3.2) K/mm3 [facility] # (Auto) 0.5 (0.1-0.6) K/mm3 Eos # (Auto) 0.1 (0-0.3) K/mm3 Baso # (Auto) 0.0 (0.0-0.1) K/mm3 Abs Immat Gran (auto) 0.01 (0.00-0.031) K/mm3 Absolute Neuts (auto) 2.3 (1.3-6.7) K/mm3 Absolute Nucleated RBC 0.000 (0.0-0.012) K/mm3 Nucleated RBC % 0.0 (0.0-0.2) % Sodium 136 L (137-145) mmol/L Potassium 3.8 (3.4-5.0) mmol/L Chloride 105 (98-107) mmol/L Carbon Dioxide 24 (22-30) mmol/L Anion Gap 7 (4-12) mmol/L BUN 20 H (7-17) mg/dL Creatinine 0.70 (0.7-1.0) mg/dL Estim Creat Clear Calc 72 ml/min Estimated GFR > 60 (59 - ) Glucose 87 (65-110) mg/dL Lactic Acid 0.5 L (0.7-2.0) mmol/L Calcium 8.8 (8.4-10.2) mg/dL Magnesium 2.2 (1.6-2.3) mg/dL Total Bilirubin 1.1 (0.2-1.3) mg/dL AST 23 (14-36) U/L ALT 13 (6-35) U/L Alkaline Phosphatase 58 (38-126) U/L Total Protein 7.0 (6.3-8.2) g/dL Albumin 4.1 (3.5-5.1) g/dL Urine Color Pending Urine Appearance Pending Urine pH Pending Ur Specific [place] Pending Urine Protein Pending Urine Glucose (UA) Pending Urine Ketones Pending Ur Blood (Man) Pending Urine Nitrate Pending Urine Bilirubin Pending Urine Urobilinogen Pending Leukocyte Esterase Rfl Pending Influenza A (RT-PCR) Negative (Negative) Influenza B (RT-PCR) Negative (Negative) RSV (RT-PCR) Negative (Negative) SARS-CoV-2 RNA (RT-PCR) Negative (Negative) Imaging Data Radiologist's impression: ITS Impressions Abdomen/Pelvis CT 07/20/24 06:13 Impression: No acute abnormalities seen. Somewhat prominent endometrium is similar to prior exam, possibly related to stage in menstrual cycle. Discharge Plan Discharge Clinical Impression: Abdominal pain, Nausea vomiting and diarrhea Patient Disposition: Home, Self-Care Condition: Improved Instructions: Antibiotic Form, Abdominal Pain (ED) Additional Instructions: Please follow-up with your family doctor within the next 3-5 days. Return to the emergency department if any new or worsening symptoms develop. You also provided with a GI referral instructed to call to set up a follow-up appointment. Patient Language: Armenian Prescriptions: No Action multivitamin Tablet 1 tablet PO DAILY acetaminophen 650 mg Tablet 650 mg PO QID PRN (Reason: Migraine Headache) Follow-up/Referrals: Rafael Combs MD [Physician] - 3 Days Beau Srivastava DO [Primary Care Provider] - 3 Days Time of Disposition: 05:55
[2024-07-20 05:54] VITALS: BP 104/62; PULSE 62; RESP 17; O2SAT 98
[2024-07-20 06:19] LABS: Add Urine Microscopic? NO; Appearance Urine Clear (Clear); Bilirubin Urine Negative (Negative); Blood Urine Negative (Negative); Color Urine Yellow (Yellow); Glucose Urine UA Negative (Negative); Ketones Urine 1+ mg/dL (Negative); Leukocyte Esterase Ur Negative LEU/UL (Negative); Nitrate Urine Negative (Negative); Protein Urine Negative (Negative); Specific Grav Ur > 1.045 (1.001-1.035); Urobilinogen Urine 0.2 mg/dL (<2.0)
[2024-07-20 07:44] VITALS: BP 104/62; PULSE 68; RESP 16; O2SAT 96
== END 2024-07-20 07:44 | disposition home or self-care (01) ==
LOC: ANHED 06:05
PROVIDERS: Emergency Provider Emergency Medicine; PCP Internal Medicine
DX: R10.30 Lower abdominal pain, unspecified (principal); R11.2 Nausea with vomiting, unspecified; R19.7 Diarrhea, unspecified; Z20.822 Contact with and (suspected) exposure to COVID-19; E53.8 Deficiency of other specified B group vitamins; E55.9 Vitamin D deficiency, unspecified; M19.90 Unspecified osteoarthritis, unspecified site
CPT/HCPCS: 36415; 74177; 80053; 81003; 83605; 83735; 85025; 87637; 99284; Q9967